=== PATIENT | female | born 1945 | race Caucasian/White ===

== ENCOUNTER 2024-09-23 15:33 | Outpatient (AMB) | payer MEDICARE, SELFPAY ==
--- NOTE | 2024-09-23 15:53 | HO.NEPHOV ---
Vital Signs 09/23/24 15:56 Height 5 ft 3 in Weight 133 lb 8 oz BMI 23.6 BP 112/62 Blood Pressure Location Lt brachial Position Sitting Pulse 75 Pulse Source Pulse Oximeter Pulse Oximetry (%) 96 Oxygen Delivery Method Room Air Intake Visit Reasons: [facility] ER 08/27-08/29-CONF [employer] Operator Required: No Accompanied by: Daughter Allergies sulfadiazine Allergy (Unknown, Verified 09/23/24 15:55) Unknown HPI Comments Details: I had the pleasure of seeing Sneha in consultation for her recent SUKHWINDER as well as history of orthostatic hypotension. She is 79 years of age with history of memory impairment from dementia. She recently had a fall with resultant fracture of her right humerus with resultant hospitalization. No cardiac etiology needing to the syncope was identified. She was given intravenous fluids that time with improvement in orthostasis and ambulation. She has history of TIA as well as CKD stage 3. During the recent hospitalization she was found to have SUKHWINDER. She does not have any history of hypertension, diabetes mellitus, pedal edema, hematuria, renal calculus, new bone or back pain. She does not take any excessive nonsteroidal anti-inflammatories. She denies any palpitation, chest pain, nausea, vomiting, diarrhea, dysuria, suprapubic pain, fever, chills, loin pain, epistaxis, sinusitis or pedal edema. She was accompanied by her daughter Octavia who works in vascular surgery department in [employer]. [facility] Medical History (Updated 10/17/24 @ 18:13 by Jermaine Rm MD) Vitamin D deficiency Vitamin B12 deficiency Transient cerebral ischemia Pernicious anemia Osteoporosis Onychomycosis Irritable bowel syndrome Dementia CKD (chronic kidney disease), stage III Basal cell carcinoma of face Anxiety Anemia Surgical History H/O repair of rotator cuff Social History Alcohol intake: never Patient Tobacco Use Status: Never used Tobacco Review of Systems Const All systems reviewed & are unremarkable except as noted in HPI and below Physical Exam Vital Signs: Last Vital Signs Pulse 75 09/23/24 15:56 BP 112/62 09/23/24 15:56 Pulse Ox 96 09/23/24 15:56 Oxygen Delivery Method Room Air 09/23/24 15:56 BMI result Body Mass Index 23.6 Const General: comfortable and no acute distress HEENT Head: Yes normocephalic Mouth: Normal oral and palatal mucosa present Eyes EOM: EOMs intact bilaterally Neck Neck: Yes supple Resp Auscultation: clear to auscultation bilaterally Cardio Jugular venous distension: no JVD Rate: regular rate GI Palpation (GI): Soft to palpation Auscultation: normal bowel sounds Skin General skin exam: no rashes or lesions noted Neuro General: moves all extremities Extrem General: Yes no pedal edema Results Reviewed Nephrology Results: No Data to Display Assessment & Plan Assessment & Plan (1) CKD (chronic kidney disease), stage III: Code(s): N18.30 - Chronic kidney disease, stage 3 unspecified Category: Medical Qualifiers: Chronic kidney disease stage 3 subtype: stage 3a (GFR 45-59) Qualified Code(s): N18.31 - Chronic kidney disease, stage 3a Rossana Hoover has some mild CKD due to vascular disease and age-related loss of renal functions. She has history of TIA as well as dementia. She recently had orthostatic drop in blood pressures which might have caused her syncope as well as reduced perfusion of her kidneys leading to her SUKHWINDER at that time. She was given intravenous fluids with improvement in orthostatic blood pressure drop. She is not a diabetic. She is on sertraline. Her blood pressure is at goal and she is able to ambulate without symptoms. I have ordered 24 hour ambulatory blood pressure monitor to a certain whether she is a candidate for regular intake of p.o. midodrine. Her renal functions have settled to baseline after volume resuscitation during her recent hospital stay. I shall follow her renal functions after the next visit. She does not take any excessive nonsteroidal anti-inflammatories. I did not make any medication changes during this visit but rather discussed her SUKHWINDER, syncope as well as CKD. I reviewed all her recent hospital admission records, blood work as well as her discharge summary at that time. Further management is pending evolving data. Answered daughter's questions. Orders: Orders AMB 24 HR B/P Monitor PLACEMENT 09/23/24 I95.9 - Hypotension, unspecified Cortisol Random 09/23/24 N18.30 - Chronic kidney disease, stage 3 unspecified, I95.9 - Hypotension, unspecified Coding Level of Care Code New Pt Level 4 (27109) Diagnoses Stage 3a chronic kidney disease N18.31 Chronic kidney disease stage 3 subtype: stage 3a (GFR 45-59)
[2024-09-23 15:56] VITALS: BP 112/62; PULSE 75; O2SAT 96; BMI 23.6
--- OUTSIDE RECORDS SUMMARY | 2024-09-23 18:47 | XMS_ITS ---
Author Name [facility] Organization Unknown History of Medication Use Medication Directions Dispensed Refills Start Date End Date Stat No known medications No known medications 09/03/2024 10/05/9999 active
== END 2024-09-23 16:29 | disposition home or self-care (01) ==
PROVIDERS: PCP Nurse Practitioner Gerontology; Visit Provider Internal Medicine Nephrology
DX: N18.31 Chronic kidney disease, stage 3a (principal)
CPT/HCPCS: 99204

== ENCOUNTER → 2024-09-23 15:33 | Outpatient (BNVA) | payer MEDICARE, SELFPAY | PROVIDERS: PCP Nurse Practitioner Gerontology; Visit Provider Internal Medicine Nephrology | DX: N18.31 Chronic kidney disease, stage 3a (principal) | CPT/HCPCS: 99202 ==